=== PATIENT | female | born 1970 | race Caucasian/White ===

== ENCOUNTER 2020-06-04 17:06 | Emergency (ER) | payer OTHER ==
--- NOTE | 2020-06-04 18:20 | EDM.PDOC ---
ED HPI GENERAL MEDICAL PROBLEM - General Chief Complaint: Eye Problems Stated Complaint: RT EYE COMPTLAINT Time Seen by Provider: 06/04/20 17:59 - History of Present Illness INITIAL COMMENTS - FREE TEXT/NARRATIVE: History of present illness: Patient presents with 2 days of visual change in her right eye that consists of large dark glob type visual defect similar to a prior retinal detachment she had 2 years ago she says that there is no pain it is worse when she moves her head forward and she sees the dark defects more frequently and that particular type of positioning she denies any headache there is been normal vision except when the globs are present she has not seen any bright flashes as she had in the past but she denies pain or other complaints there was no trauma there is been no fever nothing seems to make it better leaning forward makes it worse. Review of systems: As per history of present illness and below otherwise all systems reviewed and negative. Past medical history: As per history of present illness and as reviewed below otherwise noncontributory. Surgical history: As per history of present illness and as reviewed below otherwise noncontributory. Social history: No reported history of drug or alcohol abuse. Family history: As per history of present illness and as reviewed below otherwise noncontributory. Physical exam: HEENT: Atraumatic, normocephalic, pupils reactive, negative for conjunctival pallor or scleral icterus, mucous membranes moist, throat clear, neck supple, nontender, trachea midline. On funduscopic exam I am finding it difficult to focus but there is a large defect on the lateral aspect of the retina consistent with a detached retina. Ultrasound is not available in the department Lungs: Clear to auscultation, breath sounds equal bilaterally, chest nontender. Heart: S1S2, regular, negative for clicks, rubs, or JVD. Abdomen: Soft, nondistended, nontender. Negative for masses or hepatosplenomegaly. Negative for costovertebral tenderness. Pelvis: Stable nontender. Genitourinary: Deferred. Rectal: Deferred. Extremities: Atraumatic, negative for cords or calf pain. Neurovascular unremarkable. Neuro: Awake, alert, oriented. Cranial nerves II through XII unremarkable. Cerebellum unremarkable. Motor and sensory unremarkable throughout. Exam nonfocal. Diagnostics: [] Therapeutics: [] Impression: [] Plan: Patient has previously seen Dr. Martins the local manager r d consulted for follow-up. [] Definitive disposition and diagnosis as appropriate pending reevaluation and review of above. - Related Data Allergies Allergy/AdvReac Type Severity Reaction Status Date / Time Penicillins Allergy Hives Verified 06/04/20 17:48 Home Meds: Home Meds FLUoxetine HCl [Prozac] 20 mg PO DAILY 06/04/20 [History] Levothyroxine 150 mcg PO DAILY 06/04/20 [History] Omeprazole 20 mg PO DAILY 06/04/20 [History] Potassium Gluconate [Potassium] 99 mg PO BID 06/04/20 [History] hydroCHLOROthiazide [Hydrochlorothiazide] 25 mg PO DAILY 06/04/20 [History] Past Medical History HEENT History: Reports: Retinal Detachment Cardiovascular History: Reports: High Cholesterol, Hypertension Psychiatric History: Reports: Anxiety Endocrine/Metabolic History: Reports: Hypothyroidism - Infectious Disease History Infectious Disease History: Reports: None Social & Family History - Family History Family Medical History: Noncontributory - Tobacco Use Smoking Status *Q: Never Smoker ED ROS GENERAL - Review of Systems Review Of Systems: See Below ED EXAM GENERAL W FULL EYE - Physical Exam Exam: See Below Course - Vital Signs Last Recorded V/S: Last Vital Signs Temp 36.3 C 06/04/20 17:50 Pulse 71 06/04/20 17:50 Resp 17 06/04/20 17:50 BP 154/60 H 06/04/20 17:50 Pulse Ox 97 06/04/20 17:50 Departure - Departure Time of Disposition: 18:18 Disposition: Home, Self-Care 01 Condition: Good Clinical Impression: Retinal detachment - Discharge Information *PRESCRIPTION DRUG MONITORING PROGRAM REVIEWED*: Not Applicable *COPY OF PRESCRIPTION DRUG MONITORING REPORT IN PATIENT BRITTANY: Not Applicable Instructions: Retinal Detachment Referrals: PCP,Not In Area [Primary Care Provider] - Feliz Martins MD [Ordering Only Provider] - Additional Instructions: The following information is given to patients seen in the emergency department who are being discharged to home. This information is to outline your options for follow-up care. We provide all patients seen in our emergency department with a follow-up referral. The need for follow-up, as well as the timing and circumstances, are variable de pending upon the specifics of your emergency department visit. If you don't have a primary care physician on staff, we will provide you with a referral. We always advise you to contact your personal physician following an emergency department visit to inform them of the circumstance of the visit and for follow-up with them and/or the need for any referrals to a consulting specialist. The emergency department will also refer you to a specialist when appropriate. This referral assures that you have the opportunity for follow-up care with a specialist. All of these measure are taken in an effort to provide you with optimal care, which includes your follow-up. Under all circumstances we always encourage you to contact your private physician who remains a resource for coordinating your care. When calling for follow-up care, please make the office aware that this follow-up is from your recent emergency room visit. If for any reason you are refused follow-up, please contact the [facility] at and asked to speak to the emergency department charge nurse. Call Dr. Morgan's office first thing in the morning to arrange follow-up if you have further problems develop eye pain or worsening in any way please return to the ED for reassessment Sepsis Event Note (ED) - Evaluation Sepsis Screening Result: No Definite Risk - Focused Exam Vital Signs: Vital Signs Temp Pulse Resp BP Pulse Ox 06/04/20 17:50 36.3 C 71 17 154/60 H 97
== END 2020-06-04 18:50 | disposition home or self-care (01) ==
LOC: MW.ED 17:06
DX: H33.21 Serous retinal detachment, right eye (principal); I10 Essential (primary) hypertension; F41.9 Anxiety disorder, unspecified; E03.9 Hypothyroidism, unspecified; Z88.0 Allergy status to penicillin; Z79.899 Other long term (current) drug therapy
CPT/HCPCS: 99282; 99283